=== PATIENT | female | born 1965 | race Caucasian/White ===

== ENCOUNTER → 2017-05-21 | Outpatient (CLI) | payer BC | LOC: COL.RAD 10:10 | DX: D25.9 Leiomyoma of uterus, unspecified (principal); R31.1 Benign essential microscopic hematuria; Z95.828 Presence of other vascular implants and grafts; Z90.49 Acquired absence of other specified parts of digestive tract | CPT/HCPCS: Q9967 ==

== ENCOUNTER → 2017-07-08 | Outpatient (REF) | LOC: WSOH 11:00 | DX: Z02.89 Encounter for other administrative examinations (principal) ==

== ENCOUNTER → 2017-09-30 | Outpatient (CLI) | payer BC ==
[~2017-09-30] VITALS: Ht 170.2 cm; Wt 90.3 kg
[~2017-09-30] MED LIST: COUMADIN 1010 MG/TAB PO; LEXAPRO 10MG10 MG PO; LIPITOR 40MG TA40 MG PO; LOVENOX 8080 MG/0.8 SQ; MIRAPEX 1MG PO; NORCO 325 MG-7.1 TAB PO; PROAIR HFA0.09 MG/AC IH; RT SPIRIVA18 MCG IH; TOPROL XL 25MG25 MG PO; VESICARE10 MG PO; ZANTAC 150MG T150 MG PO; ZYRTEC 10MG10 MG PO
[2017-09-30 08:31] VITALS: BP 118/74; PULSE 84
[2017-09-30 10:20] VITALS: BP 104/56; PULSE 107
[2017-09-30 10:21] VITALS: BP 107/48; PULSE 98
[2017-09-30 10:22] VITALS: BP 115/42; PULSE 90
[2017-09-30 10:23] VITALS: BP 87/34; PULSE 93
[2017-09-30 10:24] VITALS: BP 102/12; PULSE 93
== END ==
LOC: COL.CARD 08:18
DX: Z01.810 Encounter for preprocedural cardiovascular examination (principal); E78.2 Mixed hyperlipidemia; I10 Essential (primary) hypertension; R00.2 Palpitations
CPT/HCPCS: A9502; J2785

== ENCOUNTER 2019-07-15 15:57 | Emergency (ER) | payer BC ==
[~2019-07-15] VITALS: Ht 167.6 cm; Wt 94.5 kg
[~2019-07-15 15:57] MED LIST changes: +IMODIUM 2MG CAPS2 MG PO; +LIPITOR20 MG PO; +LOVENOX 100100 MG/ML SQ; +VENTOLIN0.09 MG IH; +VITAMIND3 5000 PO
[2019-07-15 17:30] VITALS: BP 127/74; PULSE 99; TEMP 98.3
== END 2019-07-15 17:30 | disposition home or self-care (01) ==
LOC: COL.ER 15:57
DX: I73.9 Peripheral vascular disease, unspecified (principal); E78.5 Hyperlipidemia, unspecified; F17.210 Nicotine dependence, cigarettes, uncomplicated; J44.9 Chronic obstructive pulmonary disease, unspecified; I10 Essential (primary) hypertension; Z79.01 Long term (current) use of anticoagulants

== ENCOUNTER 2020-01-28 05:07 | Emergency (ER) | payer OTHER ==
[~2020-01-28] VITALS: Ht 170.2 cm; Wt 92.3 kg
[2020-01-28 05:17] VITALS: BP 115/58; TEMP 97
[2020-01-28 07:26] LABS: INR 1.6 (0.8-3.0); PROTHROMBIN TIME 18.5 SECONDS (9.7-12.8)
[2020-01-28] MEDS ORDERED: NORCO 325 MG-51 TAB PO (07:26)
[2020-01-28 08:09] VITALS: PULSE 90
== END 2020-01-28 08:09 | disposition home or self-care (01) ==
LOC: COL.ER 05:07
PROVIDERS: Emergency Medicine
DX: S92.211A Displaced fracture of cuboid bone of right foot, initial encounter for closed fracture (principal); I10 Essential (primary) hypertension; F17.210 Nicotine dependence, cigarettes, uncomplicated; R40.2412 Glasgow coma scale score 13-15, at arrival to emergency department; Z86.718 Personal history of other venous thrombosis and embolism; W01.0XXA Fall on same level from slipping, tripping and stumbling without subsequent striking against object, initial encounter; Y92.59 Other trade areas as the place of occurrence of the external cause
CPT/HCPCS: Q4045

== ENCOUNTER → 2020-03-20 | Outpatient (CLI) | payer SELFPAY ==
[~2020-03-20] MED LIST changes: +NORCO 325 MG-51 TAB PO
== END ==
LOC: ZCOL.LAB 14:55
DX: Z20.828 Contact with and (suspected) exposure to other viral communicable diseases (principal); J44.9 Chronic obstructive pulmonary disease, unspecified

== ENCOUNTER → 2021-11-20 | Outpatient (CLI) | payer BC | LOC: MC.RAD 13:01 | DX: N60.02 Solitary cyst of left breast (principal) ==